=== PATIENT | female | born 1945 | race Caucasian/White ===

== ENCOUNTER 2018-05-10 07:29 | Day surgery (SDC) | payer OTHER ==
[2018-05-10 08:08] VITALS: BMI 28.1
[2018-05-10 08:38] VITALS: PULSE 67; RESP 20; TEMP 99.1
--- NOTE | 2018-05-10 09:35 | CP.SDSHP ---
Same Day Surgery H & P - History Proposed Procedure: COLONSCOPY Pre-Op Diagnosis: SEE NOTES - Previous Medical/Surgical History Cardiac: Hypertension Endocrine/Metabolic: Thyroid Disease, Other Misc: Other Pain: 4.Moderate Pain Previous Surgical History: COLON POLYPECTOMY - Allergies Allergies: Allergies No Known Allergies Allergy (Verified 05/10/18 08:07) - Physical Exam General Appearance: N Vital Signs: Vital Signs 05/10/18 08:17 Temperature 99.1 F Pulse Rate 67 Respiratory 20 Rate Blood Pressure 105/66 O2 Sat by Pulse 96 Oximetry Neuro: WNL Heart: Other Lungs: WNL GI: Other - {Optional Preform as Required} Breast: WNL Abdomen: Other Rectal: Other : WNL Ortho: Other ENT: WNL - Impression Pt. Evaluated Today:Candidate for Anesthesia & Procedure: Yes - Date & Time Time: 09:35 Short Stay Discharge - Short Stay Discharge Admitting Diagnosis/Reason for Visit: COLON POLYPS Disposition: HOME/ ROUTINE
[2018-05-10] MEDS ORDERED: Propofol 10 mg/ml Inj (20 ML) ONE (09:39)
[2018-05-10 09:41] VITALS: O2SAT 99
[2018-05-10] MEDS ORDERED: Belladonna-Phenobarbital PO ONE (09:45)
[2018-05-10 11:36] VITALS: BP 119/76
== END 2018-05-10 11:36 | disposition home or self-care (01) ==
LOC: C.ENDO 07:29
PROVIDERS: ATTEND Specialist
DX: Z12.11 Encounter for screening for malignant neoplasm of colon (principal); D12.5 Benign neoplasm of sigmoid colon; K52.9 Noninfective gastroenteritis and colitis, unspecified; K57.30 Diverticulosis of large intestine without perforation or abscess without bleeding; K64.8 Other hemorrhoids; K64.4 Residual hemorrhoidal skin tags; Z86.010 Personal history of colon polyps; I10 Essential (primary) hypertension; E03.9 Hypothyroidism, unspecified; E78.5 Hyperlipidemia, unspecified; Z98.890 Other specified postprocedural states; Z79.899 Other long term (current) drug therapy
CPT/HCPCS: 45380; 88305; J2704